=== PATIENT | female | born 1995 | race Caucasian/White ===

== ENCOUNTER 2017-11-22 10:15 | Outpatient (CLI) | payer BC | END 2017-11-22 10:16 | disposition home or self-care (01) | LOC: BICULT 10:15 | PROVIDERS: ATTEND Family Medicine | DX: Z34.82 Encounter for supervision of other normal pregnancy, second trimester (principal); Z3A.17 17 weeks gestation of pregnancy | CPT/HCPCS: 76805 ==

== ENCOUNTER 2018-04-23 21:21 | Inpatient (IN) | payer BC ==
[~2018-04-23 21:21] MED LIST: Lidocaine 2% MPF 10 ML AMP (For Epidural Use) ONE
[2018-04-23] MEDS ORDERED: Acetaminophen/Codeine 30-300mg Tablet PO PRN (22:12)
[2018-04-23] MEDS ORDERED: HYDROcodone/Acetaminophen 5/325 mg Tablet PO PRN (22:12)
[2018-04-23] MEDS ORDERED: Methylergonovine 0.2 MG/ML VIAL IM PRN (22:12)
[2018-04-23] MEDS ORDERED: Zolpidem Tartrate 5 MG TAB PO PRN (22:12)
[2018-04-23] MEDS ORDERED: Ondansetron HCl/PF 4 MG/2 ML Vial IVP PRN (22:12)
[2018-04-23] MEDS ORDERED: Promethazine HCl 25 MG/ML VIAL IM PRN (22:12)
[2018-04-23] MEDS ORDERED: Butorphanol Tartrate 1 MG/ML VIAL SLOW IVP PRN (22:12)
[2018-04-23] MEDS ORDERED: CEFAZOLIN/Water 2 GM/20 ML SYRINGE SLOW IVP SCH (22:12)
[2018-04-23] MEDS ORDERED: NS w/ Oxytocin 10 units 500 ML IV SCH ×2 (22:12)
[2018-04-23] MEDS ORDERED: Acetaminophen 500 MG TAB PO PRN (22:12)
[2018-04-23] MEDS ORDERED: NS / Oxytocin 40 units/1000ml 1,000 ML IV PRN (22:12)
[2018-04-23] MEDS ORDERED: Misoprostol 200 MCG TAB PR PRN (22:12)
[2018-04-23] MEDS ORDERED: Ibuprofen 800 MG TAB PO PRN (22:12)
[2018-04-23] MEDS ORDERED: Lidocaine 1% (PF) 30 ML VIAL SC PRN (22:12)
[2018-04-23 23:07] LABS: Hemoglobin 11.3 g/dL (12.0-16.0); Mean Corpuscular HGB CONC 33.5 g/dL (32.0-36.0); Mean Corpuscular Hemoglobin 26.4 pg (27.0-31.0); Mean Platelet Volume 10.1 fL (7.4-10.4); Platelet Count 255 thou/uL (130-400); RBC Distribution Width 13.4 % (11.5-14.5); Red Blood Cell (RBC) Count 4.26 mill/uL (4.20-5.40); White Blood Cell (WBC) Count 12.6 thou/uL (4.8-10.8)
[2018-04-23 23:35] LABS: Hep B Surf Ag Non-Reactive S/CO (NonReactive); Syphilis Antibody Nonreactive (Nonreactive); Syphilis Antibody Index 0.05 S/CO (<1.00 Non-Reactive)
[2018-04-23] MEDS: CEFAZOLIN 1 GM in Sodium Chloride 0.9% 100 ML IVPB SCH (23:35)
[2018-04-23] MEDS: Lactated Ringer's 1,000 ML IV SCH (23:38)
[2018-04-23] MEDS: Misoprostol 100 MCG TAB VAG SCH (23:38)
[2018-04-24] MEDS ORDERED: diphenhydrAMINE 50 MG/ML VIAL ONE (04:16)
[2018-04-24] MEDS ORDERED: Promethazine HCl 25 MG/ML VIAL IM PRN (05:12)
[2018-04-24] MEDS ORDERED: Lactated Ringer's 500 ML IV PRN (05:12)
[2018-04-24] MEDS ORDERED: Fentanyl 4 mcg/Marc 0.1% Cadd 100 ML in Premix Bag 1 BAG EPIDURAL SCH (05:12)
[2018-04-24] MEDS ORDERED: ePHEDrine/0.9% NaCl/PF SYRINGE 50 mg/10 ml SLOW IVP PRN (05:12)
[2018-04-24] MEDS ORDERED: diphenhydrAMINE 50 MG/ML VIAL IVP PRN (05:12)
[2018-04-24] MEDS ORDERED: Naloxone HCl 0.4 mg/ml Vial IV PRN ×2 (05:12)
[2018-04-24] MEDS ORDERED: Ondansetron HCl/PF 4 MG/2 ML Vial IVP PRN ×2 (05:12→08:30)
[2018-04-24] MEDS ORDERED: Acetaminophen 325 MG TAB PO PRN (05:12)
[2018-04-24] MEDS ORDERED: Hydrocerin (Eucerin) Cream 120 gm Jar TOP PRN (05:12)
[2018-04-24] MEDS: Misoprostol 100 MCG TAB VAG SCH ×2 (05:16→06:31)
[2018-04-24] MEDS: Lactated Ringer's 1,000 ML IV SCH (05:23)
[2018-04-24] MEDS ORDERED: Bupivacaine 0.5% 20 ML, fentaNYL Citrate/PF 400 MCG in Sodium Chloride 0.9% 72 ML EPIDURAL SCH (05:45)
[2018-04-24] MEDS: CEFAZOLIN 1 GM in Sodium Chloride 0.9% 100 ML IVPB SCH (06:27)
[2018-04-24] MEDS: NS / Oxytocin 40 units/1000ml 1,000 ML IV SCH ×2 (07:35→08:58)
[2018-04-24] MEDS ORDERED: Lanolin Ointment 7 GM TUBE TOP PRN (08:30)
[2018-04-24] MEDS ORDERED: Acetaminophen/Codeine 30-300mg Tablet PO PRN (08:30)
[2018-04-24] MEDS ORDERED: Milk Of Magnesia 30 ML UDCUP PO PRN (08:30)
[2018-04-24] MEDS ORDERED: Benzocaine/Menthol 20-0.5% 60 ML CAN TOP PRN (08:30)
[2018-04-24] MEDS ORDERED: Bisacodyl 10 MG SUPP PR PRN (08:30)
[2018-04-24] MEDS ORDERED: Preparation H Ointment 28 GM TUBE PR PRN (08:30)
[2018-04-24] MEDS ORDERED: diphenhydrAMINE 25 MG CAP PO PRN (08:30)
[2018-04-24] MEDS ORDERED: traMADol HCl 50 MG TAB PO PRN (08:30)
[2018-04-24] MEDS ORDERED: HYDROcodone/Acetaminophen 5/325 mg Tablet PO PRN (08:30)
[2018-04-24] MEDS: Ferrous Sulfate 325 MG TAB PO SCH ×2 (11:43→16:49)
[2018-04-24] MEDS: Docusate Calcium (SURFAK) 240 MG CAP PO SCH ×2 (11:43→21:06)
[2018-04-24] MEDS: Prenatal Vitamin 1 TAB PO SCH (11:43)
[2018-04-24] MEDS: Ibuprofen 800 MG TAB PO SCH ×2 (15:39→21:06)
[2018-04-25] MEDS: Ibuprofen 800 MG TAB PO SCH ×2 (05:36→14:14)
[2018-04-25 07:58] VITALS: BP 108/56; TEMP 97.7
[2018-04-25] MEDS: Ferrous Sulfate 325 MG TAB PO SCH (09:09)
[2018-04-25] MEDS: Prenatal Vitamin 1 TAB PO SCH (09:10)
[2018-04-25] MEDS: Docusate Calcium (SURFAK) 240 MG CAP PO SCH (09:10)
--- NOTE | 2018-04-30 13:15 | DN ---
DATE OF DELIVERY: 04/24/2018 PREDELIVERY DIAGNOSIS: Term intrauterine in active labor. POSTOPERATIVE DIAGNOSES: Term intrauterine in active labor, status post delivery. PROCEDURE: Normal spontaneous vaginal delivery without complications. PROCEDURE IN DETAIL: The patient had labored well throughout the evening. Epidural had been placed. She remained a category 1 strip throughout labor. Noted the patient was GBS positive, had received 2 doses of IV antibiotics. On routines exam noted the patient was completely dilated with baby at + 3 station. FHTs remained category 1. The patient was placed in the dorsal lithotomy position. The perineum was prepped and draped and the patient pushed with total of 2 contractions and delivered a v iable female from vertex presentation. The nose and mouth were bulb suctioned at the perineum . Remainder of infant delivered without difficulty. The baby was placed on the mother's abdomen and the baby was dried with the abdominal draped as well as a blue towel. The baby was then placed dire ctly skin to skin on the mother's abdomen with initial exam done by myself, the delivering doctor, al so noted to be the baby's doctor, noted that the baby had normal active movement, the body was pink. The baby had good respiratory effort, although there was no audible crying and the baby had normal a ctive motion. The baby was doing very well skin to skin. At 1 minute the cord was clamped and cut, a nd the baby remained skin to skin. Some concerns by the nurse and she took the baby to the radiant w armer for further warming for further drying and evaluation. Cord blood was obtained. The placenta delivered spontaneously in less than 5 minutes. There was minimal bleeding. The fundus was firm. T here were no lacerations. The perineum was then cleaned and the patient did well. Quantitative bloo d loss was pending, but estimated blood loss was very minimal at the time of the delivery and mother was doing well. I reexamined the baby at the warmer. At that time at 5 minutes and Neonatology team had been called in. Noted the baby's body was completely pink as well as the extremities. Continue d to have active normal movement. Continued to have normal active motion and with a heart rate above 100 with normal respiratory effort and crying noted at the warmer. Baby was evaluated by the Neonat ology Team, received no resuscitative efforts other than room air blow by at 21% given by the Labor a nd Delivery nurse. Due to no need for intervention, the baby was returned to mother for skin to skin .
== END 2018-04-25 14:50 | disposition home or self-care (01) | DRG 775 ==
LOC: L&D 21:21 → 3SW 04-24 15:07
PROVIDERS: ADMIT Family Medicine; ATTEND Family Medicine
PROC: 10E0XZZ Delivery of Products of Conception, External Approach (ICD-10-PCS; principal; 2018-04-24)
DX: O80 Encounter for full-term uncomplicated delivery (principal); Z3A.40 40 weeks gestation of pregnancy; Z37.0 Single live birth; O99.820 Streptococcus B carrier state complicating pregnancy
CPT/HCPCS: 36415; 51702; 85027; 86780; 86850; 86900; 86901; 87340; J0690; J1200; J2001; J3010; J3490; J7050

== ENCOUNTER 2022-02-20 21:15 | Emergency (ER) | payer BC ==
[2022-02-20 21:34] LABS: Bacteria/HPF None Seen HPF (None Seen); Bilirubin Negative (Negative); Blood, Urine 1+ (Negative); Clarity Clear (Clear); Glucose, Urine (Dipstick) Normal (Negative); Ketone, Urine Negative (Negative); Leukocyte Negative Leu/uL (Negative); Nitrite Negative (Negative); Protein, Urine (Dipstick) Negative (Neg-Trace); Specific Gravity, Urine 1.015 (1.002-1.036); Squamous Epithelial 0-3 HPF (0-3); Urobilinogen Normal mg/dL (Less than 2); WBC/HPF 0-3 HPF (0-3)
[2022-02-20 21:59] LABS: #Basophils 0.1 thou/uL (0.0-0.2); #Eosinphils 0.2 thou/uL (0.0-0.7); #Lymphocytes 2.5 thou/uL (1.20-3.40); #Monocytes 0.8 thou/uL (0.11-0.59); #Neutrophils 7.2 thou/uL (1.40-6.50); %Eosinophils 2.3 % (0.0-10.0); %Lymphocytes 22.8 % (21.0-51.0); %Monocytes 7.7 % (0.0-10.0); %Neutrophils 66.3 % (42.0-75.0); Hemoglobin 13.2 g/dL (12.0-16.0); Mean Corpuscular HGB CONC 33.3 g/dL (32.0-36.0); Mean Corpuscular Hemoglobin 29.3 pg (27.0-31.0); Mean Corpuscular Volume 88.3 fL (78.0-98.0); Mean Platelet Volume 8.8 fL (7.4-10.4); Platelet Count 314 thou/uL (130-400); RBC Distribution Width 12.1 % (11.5-14.5); Red Blood Cell (RBC) Count 4.49 mill/uL (4.20-5.40); White Blood Cell (WBC) Count 10.8 thou/uL (4.8-10.8)
[2022-02-20 22:05] LABS: BHCG - Serum Negative (NEGATIVE); Pregs Control Background? CLEAR/WHITE (CLR/WHITE); Pregs Control Bar Appear? YES (CONTROL BAR)
[2022-02-20] MEDS ORDERED: Ondansetron PF 4 MG/2 ML Vial ONE (22:18)
[2022-02-20] MEDS ORDERED: Morphine 4 MG/ML VIAL ONE (22:18)
[2022-02-20 22:19] LABS: ALT (SGPT) 14 U/L (8-55); AST (SGOT) 14 U/L (5-34); Albumin 4.3 g/dL (3.5-5.0); Alkaline Phosphatase 70 U/L (40-110); Anion Gap 15 mmol/L (10-20); BUN (Urea Nitrogen) 13 mg/dL (7.0-18.7); Bilirubin, Total 0.3 mg/dL (0.2-1.2); Calc. Creatinine Clearance 0 mL/min (70-130); Calcium 9.4 mg/dL (7.8-10.44); Carbon Dioxide 25 mmol/L (22-29); Chloride 106 mmol/L (98-107); Globulin 3.5 g/dL (2.4-3.5); Glucose 114 mg/dL (70-105); Potassium 3.8 mmol/L (3.5-5.1); Protein, Total 7.8 g/dL (6.0-8.3); Sodium 142 mmol/L (136-145)
[2022-02-21] MEDS ORDERED: Ketorolac Tromethamine 30 MG/ML VIAL ONE (00:52)
[2022-02-21 01:12] LABS: Lactic Acid 0.7 mmol/L (0.5-2.2)
== END 2022-02-21 01:30 | disposition home or self-care (01) ==
LOC: ERS 21:15
DX: K80.70 Calculus of gallbladder and bile duct without cholecystitis without obstruction (principal)
CPT/HCPCS: 36415; 76705; 80053; 81003; 81015; 83605; 84703; 85025; 96374; 96375; J1885; J2270; J2405

== ENCOUNTER 2022-02-24 13:50 | Outpatient (CLI) | payer BC ==
[2022-02-24 15:15] LABS: #Basophils 0.1 10x3/uL (0.0-0.2); #Eosinphils 0.2 10x3/uL (0.0-0.5); #Monocytes 0.5 10x3/uL (0.0-1.1); #Neutrophils 4.5 10x3/uL (1.5-8.4); %Basophils 0.8 % (0.0-2.0); %Eosinophils 2.6 % (0.0-6.0); %Lymphocytes 28.6 % (18.0-47.0); %Monocytes 6.8 % (0.0-10.0); %Neutrophils 61.1 % (40.0-75.0); Hemoglobin 13.4 g/dL (12.0-15.5); Mean Corpuscular HGB CONC 32.7 g/dL (32.0-36.0); Mean Corpuscular Hemoglobin 28.1 pg (27.0-33.0); Mean Platelet Volume 11.3 fl (7.4-10.4); Platelet Count 359 10x3/uL (150-450); RBC Distribution Width 13.3 % (11.5-14.5); Red Blood Cell (RBC) Count 4.77 10x6/uL (3.90-5.03); White Blood Cell (WBC) Count 7.3 10x3/uL (3.5-10.5)
[2022-02-24 15:47] LABS: ALT (SGPT) 44 U/L (8-55); AST (SGOT) 27 U/L (5-34); Albumin 4.4 g/dL (3.5-5.0); Alkaline Phosphatase 61 U/L (40-110); Anion Gap 14 mmol/L (10-20); BUN (Urea Nitrogen) 10 mg/dL (7.0-18.7); Bilirubin, Direct 0.2 mg/dL (0.1-0.3); Bilirubin, Total 0.6 mg/dL (0.2-1.2); Calc. Creatinine Clearance 0 mL/min (70-130); Calcium 9.6 mg/dL (7.8-10.44); Carbon Dioxide 25 mmol/L (22-29); Chloride 102 mmol/L (98-107); Globulin 2.8 g/dL (2.4-3.5); Glucose 111 mg/dL (70-105); Potassium 4.3 mmol/L (3.5-5.1); Protein, Total 7.2 g/dL (6.0-8.3); Sodium 137 mmol/L (136-145)
[2022-02-24 16:07] LABS: BHCG - Serum Negative (NEGATIVE); Pregs Control Background? CLEAR/WHITE (CLR/WHITE); Pregs Control Bar Appear? YES (CONTROL BAR)
== END 2022-02-24 13:51 | disposition home or self-care (01) ==
LOC: LABBT 13:50
PROVIDERS: ATTEND Surgery
DX: Z01.812 Encounter for preprocedural laboratory examination (principal); K80.20 Calculus of gallbladder without cholecystitis without obstruction; Z20.822 Contact with and (suspected) exposure to COVID-19
CPT/HCPCS: 80053; 80076; 84703; 85025; U0003; U0005

== ENCOUNTER 2022-02-28 05:54 | Day surgery (SDC) | payer BC ==
[2022-02-27 11:47] VITALS: BMI 24.3
[2022-02-28] MEDS ORDERED: Midazolam HCl 2 mg/2 ml Vial ONE (06:36)
[2022-02-28] MEDS ORDERED: fentaNYL Citrate/PF 100 MCG/2 ML SYRINGE ONE (06:36)
[2022-02-28] MEDS ORDERED: Bupivacaine 0.25% HCL 30 ML VIAL ONE (06:41)
[2022-02-28] MEDS ORDERED: Lidocaine 1% w/Epinephrine 1:100K 20 ML VIAL ONE (06:41)
[2022-02-28] MEDS ORDERED: cefOXitin 2 GM VIAL ONE (06:53)
[2022-02-28] MEDS ORDERED: Sodium Chloride 0.9% 100 ML ONE (06:53)
[2022-02-28] MEDS ORDERED: PROPOFOL 200 MG/20 ML VIAL ONE (07:22)
[2022-02-28] MEDS ORDERED: Ondansetron PF 4 MG/2 ML Vial ONE (07:22)
[2022-02-28] MEDS ORDERED: Rocuronium Bromide 10 MG/ML (10ML VIAL) ONE (07:22)
[2022-02-28] MEDS ORDERED: Dexamethasone 20 MG/5 ML VIAL ONE (07:22)
[2022-02-28] MEDS ORDERED: Glycopyrrolate 0.2 MG/ML 5 ML SYRINGE ONE (07:22)
[2022-02-28] MEDS ORDERED: Ketorolac Tromethamine 30 MG/ML VIAL ONE (07:22)
[2022-02-28] MEDS ORDERED: Fentanyl 100 MCG/2 ML VIAL ONE (08:22)
[2022-02-28] MEDS ORDERED: Meperidine HCl/PF 25 MG/ML VIAL ONE (08:25)
[2022-02-28] MEDS ORDERED: HYDROcodone/Acetaminophen 5/325 mg Tablet ONE (09:17)
== END 2022-02-28 10:15 | disposition home or self-care (01) ==
LOC: SDC 05:54
PROVIDERS: ATTEND Surgery
PROC: 0FT44ZZ Resection of Gallbladder, Percutaneous Endoscopic Approach (ICD-10-PCS; principal; 2022-02-28)
DX: K80.10 Calculus of gallbladder with chronic cholecystitis without obstruction (principal); K82.8 Other specified diseases of gallbladder; Z79.899 Other long term (current) drug therapy; Z88.0 Allergy status to penicillin
CPT/HCPCS: 88304; C1713; J0694; J1100; J1885; J2175; J2250; J2405; J2704; J3010; J3490; S0020